=== PATIENT | female | born 1985 | race Caucasian/White ===

== ENCOUNTER 2023-06-19 14:52 | Observation (INO) | payer BC, SELFPAY ==
[2023-06-19 15:31] VITALS: BP 93/63; BMI 27.0
== END 2023-06-19 17:22 | disposition home or self-care (01) ==
LOC: LDRP 14:52
PROVIDERS: ADMITTING PHYSICIAN Obstetrics & Gynecology
DX: O36.8320 Maternal care for abnormalities of the fetal heart rate or rhythm, second trimester, not applicable or unspecified (principal); Z3A.23 23 weeks gestation of pregnancy
CPT/HCPCS: G0378

== ENCOUNTER 2023-10-14 17:32 | Inpatient (IN) | payer BC, SELFPAY ==
[2023-10-14 17:45] VITALS: BP 120/80; BMI 28.7
[2023-10-14] MEDS: LR 1000 IV ×2 (18:00→22:39)
[2023-10-14 18:04] LABS: Hematocrit 32.9 % (37.0-47.0); Hemoglobin 11.8 g/dL (12.0-16.0); Mean Corp Hgb Conc. 35.9 g/dL (33.0-37.0); Mean Corpuscular Hgb 31.1 pg (27.0-31.0); Mean Corpuscular Volume 86.6 fL (81.0-99.0); Mean Platelet Volume 10.3 fL (7.4-10.4); Platelet Count 238 10^3/uL (130-400); Red Cell Dist. Width 13.5 % (11.5-14.5); White Blood Cell Count 13.4 10^3/uL (4.8-10.8)
[2023-10-14] MEDS: SUBLIMAZE 100 MCG EPIDURAL (18:13)
[2023-10-14] MEDS: FENTANYL/BUPIVACAINE 100 EPIDURAL (18:13)
--- NOTE | 2023-10-15 03:42 | DOWNTIME ---
There was a [employer] Downtime on 10/15/2023 from 0100 to 10/15/2023 at 0337. Downtime documentation of patient's care, including medication administrations, has been reconciled in the electronic record per guidelines. Refer to the
patient's paper chart under the miscellaneous tab to see printed paper medication records and downtime forms.
[2023-10-15] MEDS: MOTRIN 600 MG PO ×3 (06:38→22:19)
[2023-10-15] MEDS: TYLENOL 650 MG PO ×2 (15:24→22:19)
[2023-10-15] MEDS: SENOKOT-S 1 TABLET PO (15:24)
[2023-10-15] MEDS: PRENATAL PLUS 1 TABLET PO (15:24)
[2023-10-16 04:37] LABS: Hematocrit 29.5 % (37.0-47.0); Hemoglobin 10.1 g/dL (12.0-16.0)
[2023-10-16] MEDS: MOTRIN 600 MG PO ×2 (07:49→16:49)
[2023-10-16] MEDS: PRENATAL PLUS 1 TABLET PO (07:49)
[2023-10-16] MEDS: FEOSOL 325 MG PO (07:49)
[2023-10-16] MEDS: SENOKOT-S 1 TABLET PO (07:51)
[2023-10-17] MEDS: MOTRIN 600 MG PO (01:02)
[2023-10-17] MEDS: TYLENOL 650 MG PO (01:02)
[2023-10-17] MEDS: M-M-R II 0.5 ML SC (11:08)
[2023-10-17] MEDS: FEOSOL PO (11:14)
[2023-10-17] MEDS: PRENATAL PLUS PO (11:14)
[2023-10-17 13:45] LABS: Syphilis/T. pallidum Ab Reflex Negative (Negative)
== END 2023-10-17 12:10 | disposition home or self-care (01) | DRG 806 ==
LOC: LDRP 17:32
PROVIDERS: Obstetrics & Gynecology; ADMITTING PHYSICIAN Obstetrics & Gynecology; FAMILY PHYSICIAN Nurse Practitioner Family
PROC: 10E0XZZ Delivery of Products of Conception, External Approach (ICD-10-PCS; 2023-10-15)
PROC: 0KQM0ZZ Repair Perineum Muscle, Open Approach (ICD-10-PCS; 2023-10-15)
PROC: 0UQMXZZ Repair Vulva, External Approach (ICD-10-PCS; 2023-10-15)
PROC: 3E0134Z Introduction of Serum, Toxoid and Vaccine into Subcutaneous Tissue, Percutaneous Approach (ICD-10-PCS; 2023-10-17)
DX: O34.219 Maternal care for unspecified type scar from previous cesarean delivery (principal); O71.7 Obstetric hematoma of pelvis; Z37.0 Single live birth; Z3A.39 39 weeks gestation of pregnancy; O70.1 Second degree perineal laceration during delivery; O71.82 Other specified trauma to perineum and vulva; O77.0 Labor and delivery complicated by meconium in amniotic fluid; G47.419 Narcolepsy without cataplexy; O99.02 Anemia complicating childbirth; D64.9 Anemia, unspecified; Z82.49 Family history of ischemic heart disease and other diseases of the circulatory system; Z23 Encounter for immunization; Z80.0 Family history of malignant neoplasm of digestive organs
CPT/HCPCS: 88307; 36415; 85014; 85018; 85027; 86780; 86850; 86900; 86901; 90707

== ENCOUNTER 2024-08-18 07:28 | Outpatient (RCR) | payer BC, SELFPAY | END 2024-08-18 23:59 | disposition home or self-care (01) | LOC: RPT 07:28 | PROVIDERS: ATTENDING PHYSICIAN Obstetrics & Gynecology; FAMILY PHYSICIAN Internal Medicine | DX: N39.3 Stress incontinence (female) (male) (principal); M62.89 Other specified disorders of muscle; Z73.6 Limitation of activities due to disability | CPT/HCPCS: 97162; 97530 ==

== ENCOUNTER 2024-09-22 13:06 | Outpatient (RCR) | payer OTHER, SELFPAY | END 2024-09-22 23:59 | disposition home or self-care (01) | LOC: RPT 13:06 | PROVIDERS: ATTENDING PHYSICIAN Obstetrics & Gynecology; FAMILY PHYSICIAN Internal Medicine | DX: N39.3 Stress incontinence (female) (male) (principal); M62.89 Other specified disorders of muscle; Z73.6 Limitation of activities due to disability | CPT/HCPCS: 97110; 97112; 97140; 97530 ==

== ENCOUNTER 2024-10-20 12:01 | Outpatient (RCR) | payer OTHER, SELFPAY | END 2024-10-20 23:59 | disposition home or self-care (01) | LOC: RPT 12:01 | PROVIDERS: ATTENDING PHYSICIAN Obstetrics & Gynecology; FAMILY PHYSICIAN Internal Medicine | DX: N39.3 Stress incontinence (female) (male) (principal); M62.89 Other specified disorders of muscle; Z73.6 Limitation of activities due to disability | CPT/HCPCS: 97110; 97140; 97530 ==